=== PATIENT | female | born 1980 | race Caucasian/White ===

== ENCOUNTER 2019-12-24 05:20 | Emergency (ER) | payer BC, SELFPAY ==
[2019-12-24 05:24] VITALS: BP 159/104; PULSE 95; RESP 18; TEMP 36.6; O2SAT 96; BMI 24.5
[2019-12-24] MEDS: Doxycycline 100 MG CAPSULE PO (05:47)
--- NOTE | 2019-12-24 05:51 | ED.VIS.FEGU ---
History of Present Illness Chief Complaint: Female C/O Informant: Patient Pain: - - Pustule lesions with drainage described as burning. She thought this was due to razor cardona. She states she recently changed the blades. Onset: Yesterday Context: Sudden Onset Timing: Continuous Quality: Burning Location: - - Pubic mons Current Severity: Mild Maximum Severity: Moderate Worsened by: - - Nothing Relieved by: - - Nothing Issue: Negative for: Vaginal bleeding, Passing clots, Passing tissue - Vaginal Discharge Onset: - - No vaginal discharge Associated Symptoms: Negative for: Dysuria, Frequency, Urgency, Hematuria, Missed Period, Irregular Period Sexually: Active, - - Patient states she had intercourse with her ex-partner on Friday. Her partner reportedly was with someone else. Control: BTL Narrative: Patient is a 39-year-old woman who presents because of blisters and pustules. She denies history of STI. She denies dyspareunia. She denies vaginal bleeding or vaginal discharge. Patient is distraught. She had many questions regarding transmission. She denies back pain. She denies fever, chills or night sweats. She reports headache for the past several days. Denies photophobia, neck pain or neck stiffness. Prior similar symptoms: No Recent Illness/Hospitalization: No - Past Medical History (1) No significant past medical history Status: Acute Past Medical History - Allergies and Home Meds Allergies/Adverse Reactions: Allergies latex Allergy (Verified 12/24/19 05:22) Swelling morphine Allergy (Verified 12/24/19 05:22) Rash Primary Care Physician: Rocío Mendez DO [Primary Care Provider] - Prior records reviewed: No Past Medical History: None Surgical History: - - Bilateral tubal ligation Lives: With Family Smoking Status: Current every day smoker Alcohol: Rare Drugs: None Review of Systems General: Denies: Chills, Fever, Malaise, Subjective Eyes: Denies: Visual changes - bilaterally, Blurred Vision - bilaterally ENT: Denies: Rhinorrhea, Sore throat Gastrointestinal: Denies: Abdominal pain, Nausea, Vomiting, Diarrhea Genitourinary: Denies: Dysuria, Hematuria, Frequency Musculoskeletal: Denies: Myalgias, Arthralgias, Neck pain, Back pain Skin: Reports: Rash, Wounds Neurological: Reports: Headache. Denies: Weakness, Parasthesia Psych: Reports: Anxiety Endocrine: Denies: Polyuria, Polydipsia Hematologic: Denies: Easy bruising, Easy bleeding Physical Exam Vital Signs/Narrative: Vital Signs Temp Pulse Resp BP Pulse Ox 12/24/19 05:24 97.9 F 95 18 159/104 H 96 Inital Vital Signs reviewed: Yes General: Well nourished, Well developed Head: Normocephalic, Atraumatic Eyes: Perrl, EOMI. Negative for: Pale conjunctiva, Scleral icterus Abdomen: Soft, Nontender, Nondistended, Normal bowel sounds, No masses : Speculum exam: Normal external genitalia, No vaginal lesions, No vaginal discharge, No blood in vault, - - Patient has evidence of folliculitis due to shaving. There is no inguinal lymphadenopathy. Back: Nontender, Normal Inspection Extremities: Nontender, No edema Skin: Normal color, Rash - Folliculitis Neurological: Alert, Oriented x3, Cranial nerves II-XII grossly intact, Normal Strength, Normal Sensation, Normal Gait Psychological: - - Patient is anxious and upset. Diagnostic/Tx/Re-eval - Medical Decision/Diagnostic Studies GC and Chlamydia cultures sent: Yes Patient has evidence of folliculitis. Patient was informed this is caused by staph and strep organisms. Since she has no antibiotic allergies and is status post tubal ligation she was treated with doxycycline which will also cover STI i.e. GC and chlamydia. Since she is not febrile blood work was not obtained. Since the lesions are external and not internal no vaginal specimens were obtained. Urine was obtained for GC and chlamydia PCR. ED Disposition - Plan for ED Patient: Disposition: Home or Assisted Living Diagnosis: Folliculitis of perineum Instructions: ED Folliculitis Prescriptions: Doxycycline 100 mg PO BID #14 cap Prescription Printed Referrals: Rocío Mendez DO [Primary Care Provider] - 3-5 Days if not improving
[2019-12-24 07:18] LABS: Chlamydia Trachomatis by PCR Negative (Negative); Neisserai gonorrhoeae by PCR Negative (Negative); Probe Check PASS; Sample Adequacy Control PASS; Specimen Processing Control PASS
== END 2019-12-24 06:18 | disposition home or self-care (01) ==
PROVIDERS: Emergency Provider Emergency Medicine
DX: L73.8 Other specified follicular disorders (principal); F17.200 Nicotine dependence, unspecified, uncomplicated
CPT/HCPCS: 87491; 87591; 99283

== ENCOUNTER → 2024-04-14 | Outpatient (CLI) | payer BC, SELFPAY ==
[2024-04-14 17:31] LABS: Absolute Neutrophil Count 3.2 X10^3/uL (2.0-7.7); Basophil# 0.06 X10^3/uL; Basophil% 0.9 % (0-1); Eosinophil# 0.09 X10^3/uL; Eosinophils% 1.4 % (0-5); Hematocrit 34.6 % (37-47); Hemoglobin 11.8 g/dL (12.0-15.0); Lymphocyte % 41.9 % (19-41); Mean Corp Hgb Conc 34.1 g/dL (32-36); Mean Corpuscular Volume 90.8 fL (81-99); Mean Platelet Vol. 9.7 fl (6.2-12.0); Monocyte# 0.42 X10^3/uL; Monocyte% 6.5 % (0-10); NRBC Flagged by Analyzer 0 % (0-5); Neutrophil # 3.16 X10^3/uL (2.7-7.7); Platelet Count 318 K/mm3 (150-450); RBC Distribution Width CV 13.3 % (11.6-14.6); RBC Distribution Width SD 44.3 fl (35.1-43.9); Red Blood Count 3.81 M/mm3 (4.2-5.4); White Blood Count 6.5 K/mm3 (4.4-11.0)
[2024-04-14 17:43] LABS: ALB/GLOB Ratio 1.2 RATIO (0.9-2.4); AST(SGOT) 14 U/L (15-37); Alanine Aminotransfer ALT/SGPT 22 U/L (13-56); Albumin, Serum 3.6 g/dL (3.2-5.0); Alkaline Phosphatase 47 U/L (45-117); Anion Gap 8 (5-15); BUN 9 mg/dL (7-18); BUN/Creat Ratio 13.9 RATIO (10-20); Calcium,Total 8.6 mg/dL (8.5-10.1); Chloride 99 mmol/L (98-107); Cholesterol 205 mg/dL (200); Creatinine, Serum 0.65 mg/dL (0.55-1.02); EST Glomerular Filtration Rate 106 mL/min (>60); Est Glom Filt Rate - Afr Amer 128 mL/min (>60); Glucose 82 mg/dL (74-106); High Density Lipoprotein 70 mg/dL; Potassium 3.2 mmol/L (3.5-5.1); Protein, Total 6.6 g/dL (6.4-8.2); Sodium Level 134 mmol/L (136-145); Triglycerides 129 mg/dL; Very Low Density Lipoprotein 26 mg/dL (5-40)
== END | disposition home or self-care (01) ==
LOC: BIMLAB 15:24
PROVIDERS: Visit Provider Internal Medicine
DX: I10 Essential (primary) hypertension (principal)
CPT/HCPCS: 36415; 80053; 80061; 85025

== ENCOUNTER → 2024-05-05 | Outpatient (CLI) | payer BC, SELFPAY ==
[2024-05-05 17:02] LABS: Anion Gap 9 (5-15); BUN 8 mg/dL (7-18); BUN/Creat Ratio 13.6 RATIO (10-20); Calcium,Total 8.8 mg/dL (8.5-10.1); Chloride 99 mmol/L (98-107); Creatinine, Serum 0.59 mg/dL (0.55-1.02); EST Glomerular Filtration Rate 117 mL/min (>60); Est Glom Filt Rate - Afr Amer 142 mL/min (>60); Glucose 74 mg/dL (74-106); Potassium 3.9 mmol/L (3.5-5.1); Sodium Level 134 mmol/L (136-145)
== END | disposition home or self-care (01) ==
LOC: BIMLAB 14:55
PROVIDERS: PCP Internal Medicine; Referring Provider Internal Medicine; Visit Provider Internal Medicine
DX: I10 Essential (primary) hypertension (principal); E87.6 Hypokalemia
CPT/HCPCS: 36415; 80048

== ENCOUNTER → 2024-06-07 | Outpatient (CLI) | payer BC, SELFPAY ==
--- NOTE | 2024-06-07 14:49 | ECHOD_ITS ---
Reason For Study Reason For Study: MURMUR Procedure This was a 2D Doppler, Color Flow transthoracic echocardiogram. Exam performed in department. Left Ventricle Normal LV size. The left ventricular ejection fraction is 70 %. No regional wall motion abnormalities noted. Right Ventricle Normal RV size. Normal systolic function. Atria Normal left atrium. Normal right atrium. Mitral Valve Normal mitral valve. Mild (1+) mitral valve insufficiency. Tricuspid Valve Normal tricuspid valve. Mild tricuspid valve insufficiency. Pulmonary artery systolic pressure is 33 mmHg. Aortic Valve Trisinus/trileaflet aortic valve. Pulmonic Valve Normal pulmonic valve. Great Vessels Normal aortic root. The pulmonary artery is normal size. Normal inferior vena cava. Pericardium/Pleural No pericardial effusion. MMode/2D Measurements & Calculations LVIDd: 5.2 cm IVSd: 1.0 cm Ao root diam: 3.1 cm LVIDs: 3.0 cm LVPWd: 0.94 cm RVDd: 3.1 cm FS: 41.6 % LAV(MOD-bp): 49.0 ml LVAd ap4: 29.0 cm2 LVAd ap2: 26.4 cm2 LAV(MOD-bp) Indexed: 29.5 ml/m2 LVLd ap4: 7.8 cm LVLd ap2: 7.7 cm LAV(MOD-sp2): 46.6 ml EDV(MOD-sp4): 92.4 ml EDV(MOD-sp2): 74.3 ml LAV(MOD-sp4): 47.5 ml EDV(sp4-el): 92.3 ml EDV(sp2-el): 77.1 ml LVAs ap4: 12.3 cm2 LVAs ap2: 11.9 cm2 LVLs ap4: 5.8 cm LVLs ap2: 5.7 cm ESV(MOD-sp4): 24.7 ml ESV(MOD-sp2): 22.2 ml ESV(sp4-el): 22.3 ml ESV(sp2-el): 21.2 ml EF(MOD-sp4): 73.3 % EF(MOD-sp2): 70.2 % EF(sp4-el): 75.9 % SV(MOD-sp4): 67.7 ml SV(MOD-sp2): 52.2 ml SV(sp4-el): 70.1 ml SI(MOD-sp4): 40.7 ml/m2 SI(MOD-sp2): 31.4 ml/m2 LA A4 area: 17.1 cm2 LA dimension(2D): 3.2 cm RA A4 area: 15.8 cm2 TAPSE: 2.8 cm Time Measurements MV dec time: 0.18 sec Doppler Measurements & Calculations MV E max dylan: 92.8 cm/sec Lat Peak E' Dylan: 12.6 cm/sec Med Peak E' Dylan: 13.9 cm/sec MV A max dylan: 69.9 cm/sec E/E' lat: 7.4 E/E' med: 6.7 MV E/A: 1.3 MV V2 max: 111.0 cm/sec MV P1/2t max dylan: 116.3 cm/sec Ao V2 max: 146.0 cm/sec MV max P.9 mmHg MV P1/2t: 62.3 msec Ao max P.5 mmHg MV V2 mean: 62.8 cm/sec Ao V2 mean: 100.4 cm/sec MV mean P.9 mmHg MV dec slope: 546.6 cm/sec2 Ao mean P.6 mmHg MV V2 VTI: 28.8 cm MVA(P1/2t): 3.5 cm2 Ao V2 VTI: 32.8 cm AV (velocity ratio): 0.81 LV V1 max: 115.4 cm/sec PA V2 max: 102.3 cm/sec TR max dylan: 269.9 cm/sec LV V1 max P.3 mmHg TR max P.1 mmHg LV V1 mean P.0 mmHg LV V1 mean: 80.7 cm/sec LV V1 VTI: 26.7 cm ECHO/Echo Complete Interpretation Summary Normal LV size. The left ventricular ejection fraction is 70 %. Pulmonary artery systolic pressure is 33 mmHg. Structurally normal valves. Ordering Physician: Emelia Staton Referring Physician: Emelia Staton Performed By: Yesika Goldstein, KANDY, RVT
== END | disposition home or self-care (01) ==
PROVIDERS: PCP Internal Medicine; Referring Provider Internal Medicine; Visit Provider Internal Medicine
DX: R01.1 Cardiac murmur, unspecified (principal)
CPT/HCPCS: 93306